=== PATIENT | male | born 1960 | race Two or more races ===

== ENCOUNTER → 2017-05-25 | Outpatient (CLI) | payer BC ==
[2014-12-04 13:16] VITALS: BP 174/74
--- NOTE | 2017-05-25 13:30 | RAD ---
Indication chronic pain associated with an injury approximately one year ago. AP oblique and lateral views of the left wrist were obtained. No bony abnormality is seen
--- NOTE | 2017-05-25 13:33 | RAD ---
Indication pain. An AP view of the left hand was obtained as well as targeted AP and lateral imaging of the thumb. No bony abnormality is seen
== END | disposition home or self-care (01) ==
LOC: RAD 12:46
PROVIDERS: ATTEND Family Medicine
DX: M25.532 Pain in left wrist (principal); M79.645 Pain in left finger(s)
CPT/HCPCS: 73110; 73140